=== PATIENT | male | born 2000 | race Caucasian/White ===

== ENCOUNTER 2020-10-04 08:22 | Inpatient (IN) ==
[2020-10-04 12:18] LABS: ABG Base Excess 1.3 MMOL/L (-2.5-2.5); ABG HCO3 25.2 MMOL/L (20-26); ABG Oxygen Saturation 86.4 % (95-100); ABG PH 7.354 (7.35-7.45); ABG PO2 57.3 MM HG (80-95); ABG TCO2 23.9 MMOL/L (23-27)
[2020-10-04] MEDS ORDERED: ALBUTEROL 2.5 MG/3 ML NEB RESP TX PRN (12:27)
[2020-10-04] MEDS ORDERED: ONDANSETRON 4 MG/2 ML VIAL IV PRN (12:27)
[2020-10-04] MEDS ORDERED: MORPHINE 4 MG/1 ML VIAL IV PRN (12:27)
[2020-10-04] MEDS ORDERED: ACETAMINOPHEN 325 MG TABLET PO PRN (12:27)
[2020-10-04] MEDS ORDERED: MIDAZOLAM 2 MG/2 ML VIAL IV ONE (12:34)
[2020-10-04] MEDS: LACTATED RINGERS 1,000 ML IV SCH ×2 (14:27→22:27)
[2020-10-04] MEDS: AZITHROMYCIN INJ 500 MG in SODIUM CHLORIDE 0.9% 250 ML IV SCH (14:29)
[2020-10-04] MEDS: FAMOTIDINE 20 MG/2 ML VIAL IV SCH ×2 (14:31→20:32)
[2020-10-04] MEDS: DEXAMETHASONE 10 MG/1 ML VIAL IV SCH (14:32)
[2020-10-04] MEDS: MIDAZOLAM 100 MG in SODIUM CHLORIDE 0.9% 80 ML IV PRN ×2 (14:32→18:46)
[2020-10-04 19:10] LABS: Bilirubin,Urine Negative (Negative); Blood, Urine Negative (Negative); Glucose,Urine (UA) 50 mg/dL (Negative); Ketones,Urine Negative (Negative); Nitrite,Urine Negative (Negative); Protein,Urine 100 MG/DL; Urine Appearance CLOUDY (Clear); Urine Color Amber (Yellow); Urine Urobilinogen < 2.0 EU/DL (0.2-1.0); WBC,Urine 26 /HPF (0-6)
[2020-10-04] MEDS: FONDAPARINUX 2.5 MG/0.5 ML SYRINGE SUBCUT SCH (20:32)
[2020-10-05 03:20] LABS: ABG Base Excess 2.6 MMOL/L (-2.5-2.5); ABG HCO3 26.8 MMOL/L (20-26); ABG Oxygen Saturation 99.6 % (95-100); ABG PCO2 43.7 MM HG (35-48); ABG TCO2 24.2 MMOL/L (23-27)
[2020-10-05 04:26] LABS: Basophils % 0.1 % (0.0-0.8); Hematocrit 35.7 VOL% (42.0-52.0); Hemoglobin 12.5 GM/DL (14.0-18.0); Immature Granulocytes % 1.4 %; Immature Granulocytes Absolute 0.17 #; Lymphocytes # 0.6 10*3/uL (1.4-4.0); Lymphocytes % 4.9 % (21.2-54.2); Mean Corpuscular Volume 88.1 FL (87-102); Monocytes % 3.9 % (1.7-12.7); Neutrophils % 89.7 % (38.7-73.9); Platelet Count 211 T/CUMM (130-400); Red Blood Count 4.05 MC/CUMM (3.8-5.5); Red Cell Distribution Width 12.3 % (9.3-17.3); White Blood Count 12.1 T/CUMM (4-12)
[2020-10-05 04:54] LABS: Calcium 8.6 MG/DL (8.5-10.1)
[2020-10-05 04:56] LABS: Troponin I 0.38 NG/ML (0.00-0.045)
[2020-10-05 05:18] LABS: Band Neutrophils 2 % (0-10); Lymphocytes 3 % (20-55); Segmented Neutrophils 90 % (50-85); Total Cells Counted 100
[2020-10-05 05:19] LABS: Hypochromasia Slight
[2020-10-05 05:21] LABS: Microcytosis Slight; Platelet Estimate Normal
[2020-10-05 05:24] LABS: INR 1.2; PT Patient Result 12.3 SECS (9.8-11.9)
[2020-10-05] MEDS: LACTATED RINGERS 1,000 ML IV SCH ×2 (07:00→18:26)
[2020-10-05] MEDS: MIDAZOLAM 100 MG in SODIUM CHLORIDE 0.9% 80 ML IV PRN (07:59)
[2020-10-05] MEDS: FAMOTIDINE 20 MG/2 ML VIAL IV SCH ×2 (08:02→20:33)
[2020-10-05] MEDS: DEXAMETHASONE 10 MG/1 ML VIAL IV SCH (08:02)
[2020-10-05] MEDS ORDERED: INFLUENZA VIRUS VACCINE 0.5 ML SYRINGE IM ONE (09:00)
[2020-10-05 09:38] LABS: Ferritin 859.5 ng/ml (26-388)
[2020-10-05] MEDS: AZITHROMYCIN INJ 500 MG in SODIUM CHLORIDE 0.9% 250 ML IV SCH (12:11)
[2020-10-05] MEDS ORDERED: REMDESIVIR 200 MG in SODIUM CHLORIDE 0.9% 210 ML IV ONE (12:30)
[2020-10-05] MEDS ORDERED: SODIUM CHLORIDE 0.9% 1,000 ML IV PRN (14:49)
[2020-10-05] MEDS ORDERED: fentaNYL INJ 1,250 MCG in SODIUM CHLORIDE 0.9% 225 ML IV PRN (17:07)
[2020-10-05] MEDS ORDERED: SODIUM CHLORIDE 0.9% 500 ML IV ONE (17:07)
[2020-10-05] MEDS ORDERED: NOREPINEPHRINE 8 MG in SODIUM CHLORIDE 0.9% 242 ML IV PRN (17:07)
[2020-10-05] MEDS: cefTRIAXone 1,000 MG in SYRINGE 1 EACH IV SCH (18:26)
[2020-10-05] MEDS: FONDAPARINUX 2.5 MG/0.5 ML SYRINGE SUBCUT SCH (20:32)
[2020-10-06] MEDS ORDERED: ROCURONIUM 100 MG/10 ML VIAL IV ONE ×2 (01:07→02:40)
[2020-10-06] MEDS: MIDAZOLAM 100 MG in SODIUM CHLORIDE 0.9% 80 ML IV PRN (01:58)
[2020-10-06] MEDS: ROCURONIUM 500 MG in SODIUM CHLORIDE 0.9% 500 ML IV PRN ×2 (03:34→10:20)
[2020-10-06 04:17] LABS: Basophils % 0.2 % (0.0-0.8); Hematocrit 34.4 VOL% (42.0-52.0); Hemoglobin 11.9 GM/DL (14.0-18.0); Immature Granulocytes % 2.1 %; Immature Granulocytes Absolute 0.23 #; Lymphocytes # 0.6 10*3/uL (1.4-4.0); Lymphocytes % 5.5 % (21.2-54.2); Mean Corpuscular HGB Conc 34.6 GM/DL (32-36); Mean Corpuscular Volume 88.4 FL (87-102); Mean Platelet Volume 10.1 FL (9.6-12.0); Monocytes % 4.8 % (1.7-12.7); Neutrophils % 87.4 % (38.7-73.9); Platelet Count 233 T/CUMM (130-400); Red Blood Count 3.89 MC/CUMM (3.8-5.5); Red Cell Distribution Width 12.5 % (9.3-17.3)
[2020-10-06 04:35] LABS: Calcium 8.1 MG/DL (8.5-10.1); Osmolality,Calculated 293.7 MOS/KG (273-304)
[2020-10-06 04:39] LABS: ABG Base Excess 4.2 MMOL/L (-2.5-2.5); ABG HCO3 27.9 MMOL/L (20-26); ABG Oxygen Saturation 86.1 % (95-100); ABG PCO2 47.2 MM HG (35-48); ABG PH 7.407 (7.35-7.45); ABG PO2 54.1 MM HG (80-95); ABG TCO2 26.4 MMOL/L (23-27); Allen Test Positive; Pt O2 Delivery Device Ventilator
[2020-10-06 04:41] LABS: Band Neutrophils 1 % (0-10); Hypochromasia 1+; Lymphocytes 5 % (20-55); Microcytosis 1+; Ovalocytes Slight; Platelet Estimate Adequate; Segmented Neutrophils 88 % (50-85); Total Cells Counted 100
[2020-10-06] MEDS: LACTATED RINGERS 1,000 ML IV SCH ×2 (05:00→13:16)
[2020-10-06 08:01] LABS: ABG Base Excess 4.3 MMOL/L (-2.5-2.5); ABG HCO3 28.2 MMOL/L (20-26); ABG PCO2 43.4 MM HG (35-48); ABG PH 7.434 (7.35-7.45); ABG TCO2 25.8 MMOL/L (23-27); Allen Test Positive; Pt O2 Delivery Device Ventilator
[2020-10-06] MEDS: FAMOTIDINE 20 MG/2 ML VIAL IV SCH ×2 (08:20→20:44)
[2020-10-06] MEDS: DEXAMETHASONE 10 MG/1 ML VIAL IV SCH (08:21)
[2020-10-06] MEDS: REMDESIVIR 100 MG in SODIUM CHLORIDE 0.9% 230 ML IV SCH (08:59)
[2020-10-06] MEDS ORDERED: DEXTROSE 50% 25 GM/50 ML VIAL IV PRN (11:24)
[2020-10-06] MEDS ORDERED: GLUCAGON 1 MG VIAL IM PRN (11:24)
[2020-10-06] MEDS: ASCORBIC ACID 500 MG TABLET PO SCH (12:28)
[2020-10-06] MEDS: ZINC GLUCONATE 50 MG TABLET PO SCH (12:28)
[2020-10-06] MEDS: CHOLECALCIFEROL 1,000 UNIT TABLET PO SCH (12:28)
[2020-10-06] MEDS: INSULIN REGULAR 100 UNIT/ML SUBCUT SCH ×2 (13:17→18:29)
[2020-10-06] MEDS: CETIRIZINE 1 MG/ML 30 ML/BOTTLE PO SCH (13:18)
[2020-10-06] MEDS: VANCOMYCIN INJ 1,750 MG in SODIUM CHLORIDE 0.9% 500 ML IV SCH (13:18)
[2020-10-06] MEDS ORDERED: LORazepam 2 MG/1 ML VIAL IV PRN (13:47)
[2020-10-06] MEDS ORDERED: ROCURONIUM 100 MG/10 ML VIAL IV PRN (13:47)
[2020-10-06] MEDS ORDERED: MORPHINE 4 MG/1 ML VIAL IV PRN (13:49)
[2020-10-06] MEDS: ENOXAPARIN 60 MG/0.6 ML SYRINGE SUBCUT SCH (16:00)
[2020-10-06] MEDS: cefTRIAXone 1,000 MG in SYRINGE 1 EACH IV SCH (18:28)
[2020-10-06] MEDS: AZITHROMYCIN INJ 500 MG in SODIUM CHLORIDE 0.9% 250 ML IV SCH (18:29)
[2020-10-06] MEDS ORDERED: MIDAZOLAM 100 MG in SODIUM CHLORIDE 0.9% 80 ML IV PRN (22:02)
[2020-10-07] MEDS: INSULIN REGULAR 100 UNIT/ML SUBCUT SCH ×4 (01:06→18:08)
[2020-10-07] MEDS: VANCOMYCIN INJ 1,750 MG in SODIUM CHLORIDE 0.9% 500 ML IV SCH ×2 (01:37→12:16)
[2020-10-07] MEDS: ENOXAPARIN 60 MG/0.6 ML SYRINGE SUBCUT SCH ×2 (02:40→15:36)
[2020-10-07 04:41] LABS: ABG Base Excess 2.6 MMOL/L (-2.5-2.5); ABG PCO2 41.2 MM HG (35-48); ABG PH 7.435 (7.35-7.45); ABG PO2 209.8 MM HG (80-95); ABG TCO2 28.3 MMOL/L (23-27); Allen Test Positive; Pt O2 Delivery Device Ventilator
[2020-10-07 04:45] LABS: Basophils % 0.3 % (0.0-0.8); Hematocrit 34.4 VOL% (42.0-52.0); Immature Granulocytes % 4.3 %; Immature Granulocytes Absolute 0.39 #; Lymphocytes # 0.9 10*3/uL (1.4-4.0); Lymphocytes % 9.6 % (21.2-54.2); Mean Corpuscular HGB Conc 34.9 GM/DL (32-36); Mean Corpuscular Volume 88.4 FL (87-102); Monocytes % 6.5 % (1.7-12.7); Neutrophils % 79.3 % (38.7-73.9); Platelet Count 250 T/CUMM (130-400); Red Blood Count 3.89 MC/CUMM (3.8-5.5); Red Cell Distribution Width 12.4 % (9.3-17.3)
[2020-10-07 05:03] LABS: Albumin 2.2 G/DL (3.4-5.0); Bilirubin,Total 1.5 MG/DL (0.2-1.0); Calcium 8.2 MG/DL (8.5-10.1); Osmolality,Calculated 285.3 MOS/KG (273-304); Total Protein 5.8 G/DL (6.4-8.3)
[2020-10-07 05:23] LABS: Hypochromasia Slight; Lymphocytes 6 % (20-55); Microcytosis Slight; Platelet Estimate Adequate; Segmented Neutrophils 92 % (50-85); Total Cells Counted 100
[2020-10-07] MEDS: ASCORBIC ACID 500 MG TABLET PO SCH (08:26)
[2020-10-07] MEDS: ZINC GLUCONATE 50 MG TABLET PO SCH (08:26)
[2020-10-07] MEDS: CHOLECALCIFEROL 1,000 UNIT TABLET PO SCH (08:26)
[2020-10-07] MEDS: DEXAMETHASONE 10 MG/1 ML VIAL IV SCH (08:26)
[2020-10-07] MEDS: CETIRIZINE 1 MG/ML 30 ML/BOTTLE PO SCH (08:26)
[2020-10-07] MEDS: FAMOTIDINE 20 MG/2 ML VIAL IV SCH ×2 (08:27→19:59)
[2020-10-07] MEDS: MORPHINE 4 MG/1 ML VIAL IV PRN (09:19)
[2020-10-07] MEDS: REMDESIVIR 100 MG in SODIUM CHLORIDE 0.9% 230 ML IV SCH (09:23)
[2020-10-07] MEDS: LACTATED RINGERS 1,000 ML IV SCH (11:40)
[2020-10-07] MEDS: cefTRIAXone 1,000 MG in SYRINGE 1 EACH IV SCH (15:36)
[2020-10-07] MEDS: AZITHROMYCIN INJ 500 MG in SODIUM CHLORIDE 0.9% 250 ML IV SCH (18:23)
[2020-10-08] MEDS: INSULIN REGULAR 100 UNIT/ML SUBCUT SCH ×4 (00:52→18:30)
[2020-10-08] MEDS: VANCOMYCIN INJ 1,750 MG in SODIUM CHLORIDE 0.9% 500 ML IV SCH ×3 (01:10→20:05)
[2020-10-08] MEDS: ENOXAPARIN 60 MG/0.6 ML SYRINGE SUBCUT SCH ×2 (01:10→14:30)
[2020-10-08 03:26] LABS: ABG Base Excess 4.7 MMOL/L (-2.5-2.5); ABG HCO3 28.6 MMOL/L (20-26); ABG Oxygen Saturation 94.9 % (95-100); ABG PCO2 47.2 MM HG (35-48); ABG PH 7.414 (7.35-7.45); ABG PO2 76.3 MM HG (80-95); ABG TCO2 26.6 MMOL/L (23-27); Allen Test Positive; Pt O2 Delivery Device Ventilator
[2020-10-08 04:48] LABS: Basophils # 0.1 10*3/uL (0.0-0.2); Basophils % 0.6 % (0.0-0.8); Eosinophils % 0.1 % (0.00-10.9); Hematocrit 34.2 VOL% (42.0-52.0); Hemoglobin 11.8 GM/DL (14.0-18.0); Immature Granulocytes % 7.2 %; Immature Granulocytes Absolute 0.59 #; Lymphocytes # 1.3 10*3/uL (1.4-4.0); Lymphocytes % 15.6 % (21.2-54.2); Mean Corpuscular HGB Conc 34.5 GM/DL (32-36); Mean Corpuscular Volume 87.5 FL (87-102); Mean Platelet Volume 9.9 FL (9.6-12.0); Monocytes % 7.1 % (1.7-12.7); Neutrophils % 69.4 % (38.7-73.9); Platelet Count 276 T/CUMM (130-400); Red Blood Count 3.91 MC/CUMM (3.8-5.5); Red Cell Distribution Width 12.3 % (9.3-17.3); White Blood Count 8.2 T/CUMM (4-12)
[2020-10-08 05:12] LABS: Calcium 8.1 MG/DL (8.5-10.1); Ferritin 807.3 ng/ml (26-388)
[2020-10-08 05:16] LABS: Hypochromasia 1+; Lymphocytes 23 % (20-55); Microcytosis 1+; Platelet Estimate Adequate; Segmented Neutrophils 71 % (50-85); Total Cells Counted 100
[2020-10-08 05:17] LABS: Ovalocytes Slight
[2020-10-08] MEDS: LACTATED RINGERS 1,000 ML IV SCH ×2 (06:23→10:28)
[2020-10-08] MEDS ORDERED: POTASSIUM CHLORIDE RIDER 10 MEQ in PREMIX 1 EACH IV PRN (07:06)
[2020-10-08] MEDS ORDERED: MAGNESIUM SULF RIDER 2 GM in PREMIX 1 EACH IV PRN (07:06)
[2020-10-08] MEDS ORDERED: MAGNESIUM SULF RIDER 4 GM in PREMIX 1 EACH IV PRN (07:06)
[2020-10-08] MEDS ORDERED: LIDOCAINE 1% 20 ML VIAL MISC INJ ONE (08:00)
[2020-10-08] MEDS ORDERED: MIDAZOLAM 2 MG/2 ML VIAL IV ONE (08:00)
[2020-10-08] MEDS ORDERED: LIDOCAINE 2% 20 ML VIAL RESP TX ONE (08:00)
[2020-10-08] MEDS: MORPHINE 4 MG/1 ML VIAL IV PRN ×2 (08:11→16:49)
[2020-10-08] MEDS: ASCORBIC ACID 500 MG TABLET PO SCH (08:14)
[2020-10-08] MEDS: CHOLECALCIFEROL 1,000 UNIT TABLET PO SCH (08:14)
[2020-10-08] MEDS: ZINC GLUCONATE 50 MG TABLET PO SCH (08:15)
[2020-10-08] MEDS: DEXAMETHASONE 10 MG/1 ML VIAL IV SCH (08:17)
[2020-10-08] MEDS: FAMOTIDINE 20 MG/2 ML VIAL IV SCH ×2 (08:18→20:04)
[2020-10-08] MEDS: CETIRIZINE 1 MG/ML 30 ML/BOTTLE PO SCH (08:19)
[2020-10-08] MEDS ORDERED: DORNASE ALFA 2.5 MG/2.5 ML VIAL RESP TX SCH (09:00)
[2020-10-08] MEDS: methylPREDNISolone SOD SUC 40 MG/1 ML VIAL IV SCH ×2 (10:16→16:08)
[2020-10-08] MEDS: POTASSIUM CHLORIDE RIDER 20 MEQ in PREMIX 1 EACH IV PRN ×3 (10:16→13:06)
[2020-10-08] MEDS: REMDESIVIR 100 MG in SODIUM CHLORIDE 0.9% 230 ML IV SCH (10:17)
[2020-10-08] MEDS ORDERED: ALBUTEROL 2.5 MG/3 ML NEB RESP TX SCH (13:00)
[2020-10-08] MEDS: cefTRIAXone 1,000 MG in SYRINGE 1 EACH IV SCH (16:10)
[2020-10-08 16:19] LABS: ABG Base Excess 5.5 MMOL/L (-2.5-2.5); ABG HCO3 29.4 MMOL/L (20-26); ABG Oxygen Saturation 96.7 % (95-100); ABG PH 7.439 (7.35-7.45); ABG PO2 88.1 MM HG (80-95); ABG TCO2 26.8 MMOL/L (23-27)
[2020-10-08] MEDS ORDERED: AZITHROMYCIN INJ 500 MG in SODIUM CHLORIDE 0.9% 250 ML IV SCH (18:30)
[2020-10-08] MEDS: AZITHROMYCIN INJ 500 MG in SODIUM CHLORIDE 0.9% 250 ML IV SCH (18:31)
[2020-10-09] MEDS: methylPREDNISolone SOD SUC 40 MG/1 ML VIAL IV SCH ×3 (00:33→16:17)
[2020-10-09] MEDS: INSULIN REGULAR 100 UNIT/ML SUBCUT SCH ×3 (01:14→12:32)
[2020-10-09] MEDS: ENOXAPARIN 60 MG/0.6 ML SYRINGE SUBCUT SCH ×2 (02:03→13:09)
[2020-10-09 02:44] LABS: ABG Base Excess 4.6 MMOL/L (-2.5-2.5); ABG HCO3 28.5 MMOL/L (20-26); ABG Oxygen Saturation 95.4 % (95-100); ABG PCO2 43.9 MM HG (35-48); ABG PH 7.435 (7.35-7.45); ABG PO2 77.4 MM HG (80-95); ABG TCO2 25.8 MMOL/L (23-27); Allen Test Positive; Pt O2 Delivery Device Ventilator
[2020-10-09 04:22] LABS: Basophils # 0.1 10*3/uL (0.0-0.2); Basophils % 0.6 % (0.0-0.8); Hematocrit 34.7 VOL% (42.0-52.0); Hemoglobin 12.1 GM/DL (14.0-18.0); Immature Granulocytes % 10.2 %; Immature Granulocytes Absolute 0.88 #; Lymphocytes # 0.6 10*3/uL (1.4-4.0); Lymphocytes % 7.3 % (21.2-54.2); Mean Corpuscular HGB Conc 34.9 GM/DL (32-36); Mean Corpuscular Volume 85.5 FL (87-102); Mean Platelet Volume 9.7 FL (9.6-12.0); Monocytes % 7.8 % (1.7-12.7); Neutrophils % 74.1 % (38.7-73.9); Platelet Count 311 T/CUMM (130-400); Red Blood Count 4.06 MC/CUMM (3.8-5.5); Red Cell Distribution Width 11.9 % (9.3-17.3); White Blood Count 8.6 T/CUMM (4-12)
[2020-10-09] MEDS: VANCOMYCIN INJ 1,750 MG in SODIUM CHLORIDE 0.9% 500 ML IV SCH ×2 (04:28→13:09)
[2020-10-09 04:54] LABS: Albumin 2.3 G/DL (3.4-5.0); Bilirubin,Total 0.8 MG/DL (0.2-1.0); Calcium 8.1 MG/DL (8.5-10.1); Ferritin 911.1 ng/ml (26-388); Osmolality,Calculated 294.7 MOS/KG (273-304)
[2020-10-09 04:55] LABS: Hypochromasia 1+; Lymphocytes 5 % (20-55); Microcytosis 1+; Platelet Estimate Adequate; Segmented Neutrophils 91 % (50-85); Total Cells Counted 100
[2020-10-09] MEDS: FAMOTIDINE 20 MG/2 ML VIAL IV SCH ×2 (09:10→20:28)
[2020-10-09] MEDS: ASCORBIC ACID 500 MG TABLET PO SCH (09:11)
[2020-10-09] MEDS: CETIRIZINE 1 MG/ML 30 ML/BOTTLE PO SCH (09:11)
[2020-10-09] MEDS: CHOLECALCIFEROL 1,000 UNIT TABLET PO SCH (09:11)
[2020-10-09] MEDS: ZINC GLUCONATE 50 MG TABLET PO SCH (09:11)
[2020-10-09] MEDS: REMDESIVIR 100 MG in SODIUM CHLORIDE 0.9% 230 ML IV SCH (09:13)
[2020-10-09] MEDS: cefTRIAXone 1,000 MG in SYRINGE 1 EACH IV SCH (16:16)
[2020-10-10] MEDS: ENOXAPARIN 60 MG/0.6 ML SYRINGE SUBCUT SCH ×2 (01:00→14:02)
[2020-10-10] MEDS: methylPREDNISolone SOD SUC 40 MG/1 ML VIAL IV SCH ×3 (01:33→20:06)
[2020-10-10 04:50] LABS: ABG Base Excess 5.6 MMOL/L (-2.5-2.5); ABG HCO3 29.4 MMOL/L (20-26); ABG Oxygen Saturation 97.9 % (95-100); ABG PCO2 43.4 MM HG (35-48); ABG PH 7.452 (7.35-7.45); ABG TCO2 26.1 MMOL/L (23-27); Allen Test Positive; Pt O2 Delivery Device Other
[2020-10-10 05:11] LABS: Basophils # 0.1 10*3/uL (0.0-0.2); Basophils % 0.9 % (0.0-0.8); Hematocrit 38.6 VOL% (42.0-52.0); Hemoglobin 13.6 GM/DL (14.0-18.0); Immature Granulocytes % 12.8 %; Immature Granulocytes Absolute 1.28 #; Lymphocytes % 9.5 % (21.2-54.2); Mean Corpuscular HGB Conc 35.2 GM/DL (32-36); Mean Corpuscular Volume 84.3 FL (87-102); Mean Platelet Volume 9.9 FL (9.6-12.0); Monocytes % 8.2 % (1.7-12.7); Neutrophils % 68.6 % (38.7-73.9); Platelet Count 351 T/CUMM (130-400); Red Blood Count 4.58 MC/CUMM (3.8-5.5); Red Cell Distribution Width 11.8 % (9.3-17.3)
[2020-10-10 05:23] LABS: Calcium 8.5 MG/DL (8.5-10.1); Ferritin 1048.9 ng/ml (26-388)
[2020-10-10 05:59] LABS: Band Neutrophils 1 % (0-10); Lymphocytes 13 % (20-55); Platelet Estimate Normal; Segmented Neutrophils 78 % (50-85); Total Cells Counted 100
[2020-10-10] MEDS: CHOLECALCIFEROL 1,000 UNIT TABLET PO SCH (08:41)
[2020-10-10] MEDS: CETIRIZINE 10 MG TABLET PO SCH (08:41)
[2020-10-10] MEDS: ZINC GLUCONATE 50 MG TABLET PO SCH (08:41)
[2020-10-10] MEDS: FAMOTIDINE 20 MG/2 ML VIAL IV SCH ×2 (08:41→20:04)
[2020-10-10] MEDS: ASCORBIC ACID 500 MG TABLET PO SCH (08:42)
[2020-10-10] MEDS ORDERED: PHENOL 1.4% THROAT SPRAY 177 ML BOTTLE PO PRN (09:57)
[2020-10-10] MEDS ORDERED: POTASSIUM CHLORIDE 20 MEQ TABLET PO ONE (15:43)
[2020-10-10] MEDS: cefTRIAXone 1,000 MG in SYRINGE 1 EACH IV SCH (16:24)
[2020-10-11] MEDS: ENOXAPARIN 60 MG/0.6 ML SYRINGE SUBCUT SCH ×2 (01:47→13:24)
[2020-10-11 05:15] LABS: Basophils % 0.5 % (0.0-0.8); Immature Granulocytes % 9.8 %; Immature Granulocytes Absolute 0.74 #; Lymphocytes # 1.4 10*3/uL (1.4-4.0); Lymphocytes % 18.7 % (21.2-54.2); Mean Corpuscular Volume 83.7 FL (87-102); Mean Platelet Volume 9.4 FL (9.6-12.0); Monocytes % 13.6 % (1.7-12.7); Neutrophils % 57.4 % (38.7-73.9); Platelet Count 348 T/CUMM (130-400); Red Blood Count 4.78 MC/CUMM (3.8-5.5); Red Cell Distribution Width 11.9 % (9.3-17.3); White Blood Count 7.6 T/CUMM (4-12)
[2020-10-11 05:34] LABS: Calcium 8.4 MG/DL (8.5-10.1); Osmolality,Calculated 284.3 MOS/KG (273-304)
[2020-10-11 06:19] LABS: Band Neutrophils 3 % (0-10); Eosinophils 1 % (0-10); Lymphocytes 20 % (20-55); Metamyelocytes 1 %; Platelet Estimate Normal; Segmented Neutrophils 61 % (50-85); Total Cells Counted 100
[2020-10-11 06:20] LABS: Anisocytosis Slight
[2020-10-11] MEDS: CHOLECALCIFEROL 1,000 UNIT TABLET PO SCH (09:20)
[2020-10-11] MEDS: ZINC GLUCONATE 50 MG TABLET PO SCH (09:20)
[2020-10-11] MEDS: CETIRIZINE 10 MG TABLET PO SCH (09:20)
[2020-10-11] MEDS: FAMOTIDINE 20 MG/2 ML VIAL IV SCH (09:21)
[2020-10-11] MEDS: ASCORBIC ACID 500 MG TABLET PO SCH (09:21)
[2020-10-11] MEDS: methylPREDNISolone SOD SUC 40 MG/1 ML VIAL IV SCH (09:21)
[2020-10-11] MEDS: cefTRIAXone 1,000 MG in SYRINGE 1 EACH IV SCH (17:03)
[2020-10-12] MEDS: ENOXAPARIN 60 MG/0.6 ML SYRINGE SUBCUT SCH ×2 (02:49→14:16)
[2020-10-12 04:32] LABS: Calcium 8.6 MG/DL (8.5-10.1); Ferritin 1014.4 ng/ml (26-388); Osmolality,Calculated 280.5 MOS/KG (273-304)
[2020-10-12] MEDS: FAMOTIDINE 20 MG TABLET PO SCH (08:12)
[2020-10-12] MEDS: ASCORBIC ACID 500 MG TABLET PO SCH (08:12)
[2020-10-12] MEDS: CETIRIZINE 10 MG TABLET PO SCH (08:12)
[2020-10-12] MEDS: ZINC GLUCONATE 50 MG TABLET PO SCH (08:12)
[2020-10-12] MEDS: CHOLECALCIFEROL 1,000 UNIT TABLET PO SCH (08:12)
[2020-10-12] MEDS: predniSONE 20 MG TABLET PO SCH (08:12)
[2020-10-12] MEDS: cefTRIAXone 1,000 MG in SYRINGE 1 EACH IV SCH (16:49)
[2020-10-13] MEDS: ENOXAPARIN 60 MG/0.6 ML SYRINGE SUBCUT SCH ×2 (02:49→14:07)
[2020-10-13] MEDS: FAMOTIDINE 20 MG TABLET PO SCH (08:14)
[2020-10-13] MEDS: CHOLECALCIFEROL 1,000 UNIT TABLET PO SCH (08:14)
[2020-10-13] MEDS: predniSONE 20 MG TABLET PO SCH (08:14)
[2020-10-13] MEDS: CETIRIZINE 10 MG TABLET PO SCH (08:14)
[2020-10-13] MEDS: ASCORBIC ACID 500 MG TABLET PO SCH (08:14)
[2020-10-13] MEDS: ZINC GLUCONATE 50 MG TABLET PO SCH (08:14)
[2020-10-14] MEDS: ENOXAPARIN 60 MG/0.6 ML SYRINGE SUBCUT SCH ×2 (02:51→14:27)
[2020-10-14 06:31] LABS: Calcium 8.9 MG/DL (8.5-10.1); Osmolality,Calculated 291.8 MOS/KG (273-304)
[2020-10-14 07:10] LABS: Basophils % 0.3 % (0.0-0.8); Hematocrit 39.9 VOL% (42.0-52.0); Hemoglobin 13.8 GM/DL (14.0-18.0); Immature Granulocytes % 2.5 %; Immature Granulocytes Absolute 0.16 #; Lymphocytes % 32.5 % (21.2-54.2); Mean Corpuscular HGB Conc 34.6 GM/DL (32-36); Mean Corpuscular Volume 85.4 FL (87-102); Mean Platelet Volume 9.8 FL (9.6-12.0); Monocytes % 12.1 % (1.7-12.7); Neutrophils % 52.6 % (38.7-73.9); Platelet Count 276 T/CUMM (130-400); Red Blood Count 4.67 MC/CUMM (3.8-5.5); Red Cell Distribution Width 12.5 % (9.3-17.3); White Blood Count 6.3 T/CUMM (4-12)
[2020-10-14] MEDS: ZINC GLUCONATE 50 MG TABLET PO SCH (08:46)
[2020-10-14] MEDS: CETIRIZINE 10 MG TABLET PO SCH (08:46)
[2020-10-14] MEDS: CHOLECALCIFEROL 1,000 UNIT TABLET PO SCH (08:46)
[2020-10-14] MEDS: predniSONE 20 MG TABLET PO SCH (08:46)
[2020-10-14] MEDS: FAMOTIDINE 20 MG TABLET PO SCH (08:46)
[2020-10-14] MEDS: ASCORBIC ACID 500 MG TABLET PO SCH (08:46)
[2020-10-14] MEDS ORDERED: ENOXAPARIN 40 MG/0.4 ML SYRINGE SUBCUT SCH (21:00)
[2020-10-15 08:49] VITALS: BP 109/51
[2020-10-15] MEDS: FAMOTIDINE 20 MG TABLET PO SCH (08:50)
[2020-10-15] MEDS: ASCORBIC ACID 500 MG TABLET PO SCH (08:50)
[2020-10-15] MEDS: ZINC GLUCONATE 50 MG TABLET PO SCH (08:50)
[2020-10-15] MEDS: CHOLECALCIFEROL 1,000 UNIT TABLET PO SCH (08:50)
[2020-10-15] MEDS: CETIRIZINE 10 MG TABLET PO SCH (08:50)
[2020-10-15] MEDS ORDERED: predniSONE 20 MG TABLET PO SCH (09:00)
== END 2020-10-15 10:40 | disposition home or self-care (01) | DRG 207 ==
LOC: SUATTDRO 11:52 → N.CC 11:52 → N.2E 10-12 16:23
PROVIDERS: ADMIT Internal Medicine; ATTEND Emergency Medicine